=== PATIENT | female | born 1980 | race Two or more races ===

== ENCOUNTER 2021-05-20 10:45 | Inpatient (IN) | payer OTHER ==
[~2021-05-20] VITALS: Ht 170.2 cm; Wt 72.1 kg
[2021-05-26] MEDS ORDERED: PERCOCET 5-3251 EACH PO (09:11)
[2021-05-26] MEDS ORDERED: INTESTINEX680 M1 PO (09:11)
== END 2021-05-26 10:44 | disposition home or self-care (01) | DRG 330 ==
LOC: O/R 05-23 05:55 → SURH 05-23 05:55 → O/R 05-23 13:35 → SURH 05-23 13:37 → SURG 05-24 13:25
PROVIDERS: ADMIT Surgery; ATTEND Surgery
PROC: 0DTN4ZZ Resection of Sigmoid Colon, Percutaneous Endoscopic Approach (ICD-10-PCS; 2021-05-23)
PROC: 07TD4ZZ Resection of Aortic Lymphatic, Percutaneous Endoscopic Approach (ICD-10-PCS; 2021-05-23)
PROC: 3E0F7SF Introduction of Other Gas into Respiratory Tract, Via Natural or Artificial Opening (ICD-10-PCS; 2021-05-23)
PROC: 0DTP4ZZ Resection of Rectum, Percutaneous Endoscopic Approach (ICD-10-PCS; principal; 2021-05-23 16:15)
DX: C18.7 Malignant neoplasm of sigmoid colon (principal); K92.2 Gastrointestinal hemorrhage, unspecified; D64.9 Anemia, unspecified; R59.0 Localized enlarged lymph nodes; Z20.822 Contact with and (suspected) exposure to COVID-19